=== PATIENT | female | born 1945 | race American Indian/Alaskan Native ===

== ENCOUNTER 2017-10-24 06:04 | Emergency (ER) | payer MEDICARE, BC ==
[2017-10-24 06:05] VITALS: BMI 30.7
--- NOTE | 2017-10-24 06:33 | ED PDOC ---
Arrival/HPI - General Chief Complaint: Headache Time Seen by Provider: 10/24/17 06:21 Historian: Patient - History of Present Illness Narrative History of Present Illness (Text): you were treated in the ED today for hx of diabetes, hypertension, had a headache yesterday which is essentially resolved but now feeling mildly fatigued with sinus congestion, but otherwise without any nausea/vomiting/ headache/dizziness/difficulty breathing/chest pain/abdomen pain/numbness/ tingling/loss of limb function/pain with urination. 10/24/17 06:30 Time/Duration: 24 hours Symptom Onset: Gradual Symptom Course: Intermittent Quality: Aching Severity Level: 1 Activities at Onset: Rest Context: Sitting Past Medical History - Provider Review Nursing Documentation Reviewed: Yes - Travel History Have you recently traveled outside [place] w/in the past 3 mons?: No - Infectious Disease Hx of Infectious Diseases: None - Cardiac Hx Hypertension: Yes - Pulmonary Hx Respiratory Disorders: No - Neurological Hx Neurological Disorder: No - HEENT Hx HEENT Disorder: Yes (eyeglasses) Hx Glaucoma: Yes - Renal Hx Renal Disorder: No - Endocrine/Metabolic Hx Diabetes Mellitus Type 2: Yes - Hematological/Oncological Hx Blood Disorders: No - Integumentary Hx Psoriasis: Yes - Musculoskeletal/Rheumatological Hx Musculoskeletal Disorders: Yes (r knee pain on and off few yrs) Hx Falls: No - Gastrointestinal Hx Gastrointestinal Disorders: Yes ("may have " mild diverticulosis) - Genitourinary/Gynecological Hx Genitourinary Disorders: No - Psychiatric Hx Psychophysiologic Disorder: No Hx Substance Use: No - Surgical History Hx Eye Surgery: Yes (R Corneal Transplant) - Anesthesia Hx Anesthesia: Yes Hx Anesthesia Reactions: No Hx Malignant Hyperthermia: No Family/Social History - Physician Review Nursing Documentation Reviewed: Yes Family/Social History: No Known Family HX Smoking Status: Never Smoked Hx Alcohol Use: No Hx Substance Use: No Allergies/Home Meds Allergies/Adverse Reactions: Allergies sulfamethoxazole [From Bactrim] Allergy (Verified 09/26/16 07:56) RASH trimethoprim [From Bactrim] Allergy (Verified 09/26/16 07:56) RASH Home Medications: Home Meds Medication Instructions Recorded Confirmed Amlodipine Besylate [Norvasc] 10 mg PO DAILY 03/23/16 10/24/17 Aspirin [Ecotrin] 81 mg PO DAILY 03/23/16 10/24/17 Atorvastatin [Lipitor] 10 mg PO DAILY 03/23/16 10/24/17 Dorzolamide HCl/Timolol Maleat 10 ml OP BID 03/23/16 10/24/17 [Dorzolamide Hydrochloride/Timolol Maleate 22] metFORMIN [glucOPHAGE] 500 mg PO BID 03/23/16 10/24/17 Olmesartan Medoxomil [Benicar] 40 mg PO DAILY 09/26/16 10/24/17 Brimonidine 0.15% [Alphagan P 5 Ml] 1 drop OP TID 10/24/17 10/24/17 Fluocinonide [Vanos] 1 applic BID 10/24/17 10/24/17 Fluorometholone 5 ml OP DAILY 10/24/17 10/24/17 Review of Systems - Review of Systems Constitutional: Fatigue Eyes: Normal ENT: Rhinorrhea Respiratory: Normal Cardiovascular: Normal Gastrointestinal: Normal Genitourinary Female: Normal Musculoskeletal: Normal Skin: Normal Neurological: Normal Endocrine: Normal Hemo/Lymphatic: Normal Psychiatric: Normal Physical Exam Vital Signs Reviewed: Yes Vital Signs Temp Pulse Resp BP Pulse Ox 10/24/17 06:20 98.5 F 98 H 18 138/93 H 99 Temperature: Afebrile Blood Pressure: Hypertensive Pulse: Regular Respiratory Rate: Normal Appearance: Positive for: Well-Appearing, Non-Toxic, Comfortable Pain Distress: None Mental Status: Positive for: Alert and Oriented X 3 - Systems Exam Head: Present: Atraumatic, Normocephalic Pupils: Present: PERRL Extroacular Muscles: Present: EOMI Conjunctiva: Present: Normal Ears: Present: Normal Mouth: Present: Moist Mucous Membranes Pharnyx: Present: Normal Nose (External): Present: Atraumatic Nose (Internal): Present: Boggy Neck: Present: Normal Range of Motion Respiratory/Chest: Present: Clear to Auscultation, Good Air Exchange Cardiovascular: Present: Regular Rate and Rhythm Abdomen: No: Tenderness, Distention, Normal Bowel Sounds, Peritoneal Signs, Rebound, Guarding, McBurney's Point Tender, Rovsing's Sign Present, Hernias, Feeding Tubes, Ostomy Tubes, Mass/Organomegaly, Scars, Other Back: Present: Normal Inspection Upper Extremity: Present: Normal Inspection Lower Extremity: Present: Normal Inspection Neurological: Present: GCS=15, CN II-XII Intact, Speech Normal, Motor Func Grossly Intact Skin: Present: Warm, Normal Color Psychiatric: Present: Alert, Oriented x 3, Normal Insight, Normal Concentration Medical Decision Making ED Course and Treatment: you were treated in the ED today for hx of diabetes, hypertension, had a headache yesterday which is essentially resolved but now feeling mildly fatigued with sinus congestion, but otherwise without any nausea/vomiting/ headache/dizziness/difficulty breathing/chest pain/abdomen pain/numbness/ tingling/loss of limb function/pain with urination. You were otherwise breathing easily, pink moist lips, smiling and talking easily, good strength/ sensation, alert/oriented, walking easily, clear lungs, no abdomen tenderness, no fever temp 98.5, stable heart rate 98, stable breathing rate 18, excellent oxygen level 99% room air, elevated blood pressure 138/93 which we recommend repeat in 2-3 days primary care office to determine further treatment. signed out to Dr. KOVACS to fu labs, CT head, ECG, disposition. - Lab Interpretations Lab Results: 10/24/17 06:34 Lab Results 10/24/17 06:34: Sodium 144, Potassium 4.1, Chloride 107, Carbon Dioxide 25, Anion Gap 15, BUN 15, Creatinine 0.7, Est GFR ( Amer) > 60, Est GFR (Non- Af Amer) > 60, Random Glucose 144 H, Calcium 10.3, Magnesium 1.8, Total Bilirubin 0.3, AST 26, ALT 29, Alkaline Phosphatase 77, Lactate Dehydrogenase 377, Total Creatine Kinase 160, Troponin I Pending, Total Protein 7.7, Albumin 4.4, Globulin 3.4, Albumin/Globulin Ratio 1.3 - RAD Interpretation Radiology Orders: 10/24/17 06:29 HEAD W/O CONTRAST [CT] Stat - Medication Orders Current Medication Orders: Discontinued Medications Acetaminophen (Tylenol 325mg Tab) 650 mg PO STAT STA Stop: 10/24/17 06:29 NIHSS Stroke Scale 3 - Date/Time Evaluation Performed Date Performed: 10/24/17 When Was NIHSS Performed: Baseline - How Severe is the Stroke Level of Consciousness: 0=Alert LOC to Questions: 0=Both comments correct LOC to commands: 0=Obeys both correctly Best Gaze: 0=Normal Visual: 0=No visual loss Facial: 0=Normal Motor Arm - Left: 0=No drift Motor Arm - Right: 0=No drift Motor Leg - Right: 0=No drift Limb Ataxia: 0=Absent Sensory: 0=Normal Best Language: 0=No aphasia Dysarthia: 0=Normal articulation Extinction & Inattention (Neglect): 0=Normal, no object Disposition/Present on Arrival - Present on Arrival History of DVT/PE: No History of Uncontrolled Diabetes: No Urinary Catheter: No History of Decub. Ulcer: No History Surgical Site Infection Following: None - Disposition Referrals: Kendrick De La Cruz DO [Primary Care Provider] - Follow up with primary Forms: [facility] [facility] ([place])
[2017-10-24 06:53] LABS: BASO # 0.02 K/mm3 (0.0-2.0); BASO % 0.5 % (0.0-3.0); EOS # 0.1 (0.0-0.7); EOS % 3.3 % (1.5-5.0); GRAN # 2.43 (1.4-6.5); GRAN % 56.7 % (50.0-68.0); HEMOGLOBIN 13.1 g/dL (12.0-16.0); LYMPH # 1.3 (1.2-3.4); LYMPH % 31.1 % (22.0-35.0); MEAN CELL VOLUME 80.9 fl (80.0-105.0); MEAN CORPUSCULAR HEMOGLOBIN 26.1 pg (25.0-35.0); MEAN CORPUSCULAR HGB CONC 32.3 g/dl (31.0-37.0); MEAN PLATELET VOLUME 9.2 fl (7.0-11.0); MONO # 0.4 (0.1-0.6); MONO % 8.4 % (1.0-6.0); RBC 5.02 10^6/uL (3.5-6.1); RED CELL DISTRIBUTION WIDTH 14.8 % (11.5-14.5); WHITE BLOOD COUNT 4.3 10^3/ul (4.5-11.0)
[2017-10-24 06:57] LABS: ALB/GLOB RATIO 1.3 (1.1-1.8); ALBUMIN 4.4 g/dL (3.0-4.8); ALT/SGPT 29 U/L (7-56); AST/SGOT 26 U/L (14-36); BLOOD UREA NITROGEN 15 mg/dL (7-21); CALCIUM 10.3 mg/dL (8.4-10.5); GFR AFRICAN-AMERICAN > 60; GFR NON-AFRICAN AMERICAN > 60
[2017-10-24 07:07] LABS: TROPONIN I < 0.01 ng/mL
[2017-10-24 07:13] LABS: PROTHROMBIN TIME 11.2 SECONDS (9.4-12.5)
[2017-10-24 07:14] LABS: INR 0.97 (0.93-1.08)
--- NOTE | 2017-10-24 07:24 | CT ---
EXAM: CT Head Without Intravenous Contrast CLINICAL HISTORY: 72 years old, female; Pain; Headache; Additional info: 72yof, headache TECHNIQUE: Axial computed tomography images of the head/brain without intravenous contrast. All CT scans at this facility use one or more dose reduction techniques, viz.: automated exposure control; ma/kV adjustment per patient size (including targeted exams where dose is matched to indication; i.e. head); or iterative reconstruction technique. Coronal and sagittal reformatted images were created and reviewed. COMPARISON: CT - HEAD W/O CONTRAST 2016-03-23 07:02 FINDINGS: Brain: There is mild ill-defined patchy hypodensity within the bilateral cerebral periventricular white matter, consistent with chronic microvascular ischemic changes. There is mild diffuse cerebral atrophy present, consistent with this patient's age. The cortical kwok / white matter interfaces are preserved throughout the brain. Examination of the posterior fossa demonstrates no significant abnormality. No hemorrhage. Ventricles: The ventricular system demonstrates mild diffuse compensatory enlargement. Bones/joints: Unremarkable. No acute fracture. Soft tissues: Unremarkable. Vasculature: There is no hyperdense MCA sign. Sinuses: Unremarkable as visualized. No acute sinusitis. Mastoid air cells: Unremarkable as visualized. No mastoid effusion. IMPRESSION: No acute infarction, masses or hemorrhage is seen. No acute intracranial abnormality is identified. Diffuse age-related cerebral atrophy and mild chronic microvascular white matter ischemic changes, without evidence of an acute intracranial abnormality.
[2017-10-24 07:29] LABS: PARTIAL THROMBOPLASTIN TIME 26.6 Seconds (25.1-36.5)
--- NOTE | 2017-10-24 07:41 | ED PDOC ---
Physical Exam Vital Signs Temp Pulse Resp BP Pulse Ox 10/24/17 08:06 98.1 F 90 17 153/86 H 98 10/24/17 06:20 98.5 F 98 H 18 138/93 H 99 Medical Decision Making ED Course and Treatment: 10/24/17 07:00 Case signed out to me by Dr. Hernandez. Patient is a 72 year old female who presents to the emergency department complaining of fatigue with sinus congestion since one day ago. Currently pending CT head. 10/24/17 07:[address]: Creator : DEREJE ZUÑIGA COMPARISON: 2016-03-23 07:02 FINDINGS: Brain: There is mild ill-defined patchy hypodensity within the bilateral cerebral periventricular white matter, consistent with chronic microvascular ischemic changes. There is mild diffuse cerebral atrophy present, consistent with this patient's age. The cortical kwok / white matter interfaces are preserved throughout the brain. Examination of the posterior fossa demonstrates no significant abnormality. No hemorrhage. Ventricles: The ventricular system demonstrates mild diffuse compensatory enlargement. Bones/joints: Unremarkable. No acute fracture. Soft tissues: Unremarkable. Vasculature: There is no hyperdense MCA sign. Sinuses: Unremarkable as visualized. No acute sinusitis. Mastoid air cells: Unremarkable as visualized. No mastoid effusion. IMPRESSION: No acute infarction, masses or hemorrhage is seen. No acute intracranial abnormality is identified. Diffuse age-related cerebral atrophy and mild chronic microvascular white matter ischemic changes, without evidence of an acute intracranial abnormality. 10/24/17 08:[address] unremarkable. Patient describes feeling as a "wave moving " in the head. She reports some congestion but not much. No sinus tenderness on exam. No focal deficit on exam. Will discharge, neurology and PMD follow up, return to ED for worsening pain, fever, stiff neck, vomiting, or any other problem. - Lab Interpretations Lab Results: 10/24/17 06:34 10/24/17 06:34 Lab Results 10/24/17 08:00: Urine Color Light yellow, Urine Appearance Clear, Urine pH 6.0, Ur Specific Aurora 1.010, Urine Protein Negative, Urine Glucose (UA) Negative, Urine Ketones Negative, Urine Blood Negative, Urine Nitrate Negative, Urine Bilirubin Negative, Urine Urobilinogen 0.2, Ur Leukocyte Esterase Negative 10/24/17 06:34: Influenza Typ A,B (EIA) Negative for flu a/b 10/24/17 06:34: Sodium 144, Potassium 4.1, Chloride 107, Carbon Dioxide 25, Anion Gap 15, BUN 15, Creatinine 0.7, Est GFR ( Amer) > 60, Est GFR (Non- Af Amer) > 60, Random Glucose 144 H, Calcium 10.3, Magnesium 1.8, Total Bilirubin 0.3, AST 26, ALT 29, Alkaline Phosphatase 77, Lactate Dehydrogenase 377, Total Creatine Kinase 160, Troponin I < 0.01, Total Protein 7.7, Albumin 4.4, Globulin 3.4, Albumin/Globulin Ratio 1.3 10/24/17 06:34: PT 11.2, INR 0.97, APTT 26.6 10/24/17 06:34: WBC 4.3 L, RBC 5.02, Hgb 13.1, Hct 40.6, MCV 80.9, MCH 26.1, MCHC 32.3, RDW 14.8 H, Plt Count 282, MPV 9.2, Gran % 56.7, Lymph % (Auto) 31.1 , Kidder % (Auto) 8.4 H, Eos % (Auto) 3.3, Baso % (Auto) 0.5, Gran # 2.43, Lymph # (Auto) 1.3, Kidder # (Auto) 0.4, Eos # (Auto) 0.1, Baso # (Auto) 0.02 - RAD Interpretation Radiology Orders: 10/24/17 06:29 HEAD W/O CONTRAST [CT] Stat - Medication Orders Current Medication Orders: Discontinued Medications Acetaminophen (Tylenol 325mg Tab) 650 mg PO STAT STA Stop: 10/24/17 06:29 Last Admin: 10/24/17 07:22 Dose: 650 mg - Scribe Statement The provider has reviewed the documentation as recorded by the Marco A Wills Provider Scribe Attestation: All medical record entries made by the Coraiblinda were at my direction and personally dictated by me. I have reviewed the chart and agree that the record accurately reflects my personal performance of the history, physical exam, medical decision making, and the department course for this patient. I have also personally directed, reviewed, and agree with the discharge instructions and disposition. Disposition/Present on Arrival - Present on Arrival Any Indicators Present on Arrival: No History of DVT/PE: No History of Uncontrolled Diabetes: No Urinary Catheter: No History of Decub. Ulcer: No History Surgical Site Infection Following: None - Disposition Have Diagnosis and Disposition been Completed?: Yes Diagnosis: Headache Disposition: HOME/ ROUTINE Disposition Time: 08:44 Patient Plan: Discharge Condition: STABLE Discharge Instructions (ExitCare): Headache, Adult Referrals: Kendrick De La Cruz DO [Primary Care Provider] - Follow up with primary Rebeca Mcgarry MD [Staff Provider] - Follow up with primary Forms: [employer] ([place]otho)
[2017-10-24 08:06] VITALS: BP 153/86; PULSE 90; RESP 17; TEMP 98.1; O2SAT 98
[2017-10-24 08:23] LABS: URINE BILIRUBIN NEGATIVE (NEGATIVE); URINE BLOOD NEGATIVE (NEGATIVE); URINE GLUCOSE (UA) NEGATIVE (NEGATIVE); URINE LEUKOCYTE ESTERASE NEGATIVE Leu/uL (NEGATIVE); URINE PROTEIN NEGATIVE mg/dL (<30 mg/dL); URINE UROBILINOGEN 0.2 E.U./dL (<1 E.U./dL)
[2017-10-24 08:29] LABS: URINE APPEARANCE CLEAR (CLEAR); URINE COLOR LIGHT YELLOW (YELLOW)
--- NOTE | 2017-10-24 19:48 | CARD ---
APPROVED REPORT EKG Measurement Heart [id number] <Conclusion> Normal sinus rhythm Normal ECG
== END 2017-10-24 08:55 | disposition home or self-care (01) ==
LOC: ED 06:04
DX: R51 Headache (principal); E11.9 Type 2 diabetes mellitus without complications; I10 Essential (primary) hypertension; Z79.84 Long term (current) use of oral hypoglycemic drugs

== ENCOUNTER 2018-03-15 15:02 | Emergency (ER) | payer MEDICARE, BC ==
[2018-03-15 15:16] VITALS: BMI 31.6
[2018-03-15 15:21] VITALS: BP 148/81; PULSE 86; TEMP 98.4; O2SAT 96
--- NOTE | 2018-03-15 15:42 | ED PDOC ---
Arrival/HPI - General Chief Complaint: Abnormal Skin Integrity Time Seen by Provider: 03/15/18 15:10 Historian: Patient - History of Present Illness Narrative History of Present Illness (Text): 03/15/18 15:56 A 73 year old female, whose past medical history includes diabetes, presents to the emergency room for further evaluation of a rash on her R leg. The patient states that she noticed the rash last night. She notes the rash began after sitting on a acevedo lounge chair that is near a window and that her step- daughter also developed a similar rash. The patient reports that the rash is somewhat itchy and has been applying hydrocortisol to it. She was at the hospital today getting a mammography and was not able to get an appointment with her PMD, so she decided to come into the emergency room. She states that she had shingles 10 years ago, but her current symptoms are very different. The patient reports checking pillows and mattresses for other insects. The patient denies fevers, chills, cough, throat swelling, chest pain, shortness of breath , dyspnea on exertion, abdominal pain, nausea, vomiting, diarrhea, urinary/ bowel changes or any other complaint. 03/15/18 16:30 Time/Duration: Other (Last Night) Symptom Onset: Sudden Symptom Course: Unchanged Activities at Onset: Rest, Light Context: Home Past Medical History - Provider Review Nursing Documentation Reviewed: Yes - Infectious Disease Hx of Infectious Diseases: None - Reproductive Menopause: Yes - Cardiac Hx Hypertension: Yes - Pulmonary Hx Respiratory Disorders: No - Neurological Hx Neurological Disorder: No - HEENT Hx HEENT Disorder: Yes (eyeglasses) Hx Glaucoma: Yes - Renal Hx Renal Disorder: No - Endocrine/Metabolic Hx Diabetes Mellitus Type 2: Yes - Hematological/Oncological Hx Blood Disorders: No - Integumentary Hx Psoriasis: Yes - Musculoskeletal/Rheumatological Hx Musculoskeletal Disorders: Yes (r knee pain on and off few yrs) Hx Falls: No - Gastrointestinal Hx Gastrointestinal Disorders: Yes ("may have " mild diverticulosis) - Genitourinary/Gynecological Hx Genitourinary Disorders: No - Psychiatric Hx Psychophysiologic Disorder: No Hx Substance Use: No - Surgical History Hx Eye Surgery: Yes (R Corneal Transplant) - Anesthesia Hx Anesthesia: Yes Hx Anesthesia Reactions: No Hx Malignant Hyperthermia: No Family/Social History - Physician Review Nursing Documentation Reviewed: Yes Family/Social History: No Known Family HX Smoking Status: Never Smoked Hx Alcohol Use: No Hx Substance Use: No Allergies/Home Meds Allergies/Adverse Reactions: Allergies sulfamethoxazole [From Bactrim] Allergy (Verified 09/26/16 07:56) RASH trimethoprim [From Bactrim] Allergy (Verified 09/26/16 07:56) RASH Home Medications: Home Meds Medication Instructions Recorded Confirmed Amlodipine Besylate [Norvasc] 10 mg PO DAILY 03/23/16 03/15/18 Aspirin [Ecotrin] 81 mg PO DAILY 03/23/16 03/15/18 Atorvastatin [Lipitor] 10 mg PO DAILY 03/23/16 03/15/18 Dorzolamide HCl/Timolol Maleat 10 ml OP BID 03/23/16 03/15/18 [Dorzolamide Hydrochloride/Timolol Maleate 22] metFORMIN [glucOPHAGE] 500 mg PO BID 03/23/16 03/15/18 Olmesartan Medoxomil [Benicar] 40 mg PO DAILY 09/26/16 03/15/18 Brimonidine 0.15% [Alphagan P 5 Ml] 1 drop OP TID 10/24/17 03/15/18 Fluocinonide [Vanos] 1 applic BID 10/24/17 03/15/18 Fluorometholone 5 ml OP DAILY 10/24/17 03/15/18 Review of Systems - Physician Review All systems were reviewed & negative as marked: Yes - Review of Systems Constitutional: absent: Fevers, Night Sweats Respiratory: absent: SOB, Cough Cardiovascular: absent: Chest Pain, PALENCIA Gastrointestinal: absent: Abdominal Pain, Stool Changes, Diarrhea, Nausea, Vomiting Genitourinary Female: absent: Urine Output Changes Skin: Rash Neurological: absent: Headache, Dizziness Physical Exam Vital Signs Reviewed: Yes Vital Signs Temp Pulse BP Pulse Ox 03/15/18 15:02 98.4 F 86 148/81 96 Temperature: Afebrile Blood Pressure: Normal Pulse: Regular Appearance: Positive for: Well-Appearing, Non-Toxic, Comfortable Pain Distress: None Mental Status: Positive for: Alert and Oriented X 3 - Systems Exam Head: Present: Atraumatic, Normocephalic Respiratory/Chest: Present: Clear to Auscultation, Good Air Exchange. No: Respiratory Distress, Accessory Muscle Use Cardiovascular: Present: Regular Rate and Rhythm, Normal S1, S2. No: Murmurs Abdomen: No: Tenderness, Distention, Peritoneal Signs Upper Extremity: Present: Normal Inspection. No: Cyanosis, Edema Lower Extremity: Present: Normal Inspection. No: Edema Skin: Present: Other (3 lesions on the right leg and 2 on the lower R leg consistent with bug bites. ) Psychiatric: Present: Alert, Oriented x 3, Normal Insight, Normal Concentration Medical Decision Making ED Course and Treatment: Impression: A 73 year old female presents to the emergency room for further evaluating of rash that developed last night. Plan: -- Benadryl -- Reassess and disposition Progress Notes: 03/15/18 15:41 Offered steroids but refusing due to diabetes. Instructed to check home belongings for bugs - Medication Orders Current Medication Orders: Discontinued Medications Diphenhydramine HCl (Benadryl) 50 mg PO STAT STA Stop: 03/15/18 15:40 Last Admin: 03/15/18 16:00 Dose: 50 mg - Scribe Statement The provider has reviewed the documentation as recorded by the Marco A Woods Provider Scribe Attestation: All medical record entries made by the Scribe were at my direction and personally dictated by me. I have reviewed the chart and agree that the record accurately reflects my personal performance of the history, physical exam, medical decision making, and the department course for this patient. I have also personally directed, reviewed, and agree with the discharge instructions and disposition. Disposition/Present on Arrival - Present on Arrival Any Indicators Present on Arrival: No History of DVT/PE: No History of Uncontrolled Diabetes: No Urinary Catheter: No History of Decub. Ulcer: No History Surgical Site Infection Following: None - Disposition Have Diagnosis and Disposition been Completed?: Yes Diagnosis: Rash, Insect bites Disposition: HOME/ ROUTINE Disposition Time: 15:40 Patient Plan: Discharge Patient Problems: Current Active Problems Problem Status Onset Insect bites Acute Rash Acute Condition: GOOD Additional Instructions: Benadryl for itching. Follow-up with PMD within 2 days. Return to ED if condition worsens. Check lounge chair and other soft items such as pillows and mattress for insects. No driving or operating machinery while taking benadryl Prescriptions: DiphenhydrAMINE [Benadryl] 25 mg PO Q6 PRN #30 cap PRN Reason: Itching / Pruritus Forms: [facility] (Wol[place])
[2018-03-15 17:46] VITALS: RESP 18
== END 2018-03-15 16:00 | disposition home or self-care (01) ==
LOC: ED 15:02
DX: R21 Rash and other nonspecific skin eruption (principal); S80.861A Insect bite (nonvenomous), right lower leg, initial encounter; W57.XXXA Bitten or stung by nonvenomous insect and other nonvenomous arthropods, initial encounter; Y92.89 Other specified places as the place of occurrence of the external cause

== ENCOUNTER 2018-07-07 07:35 | Emergency (ER) | payer MEDICARE, BC ==
[2018-07-07 07:50] VITALS: PULSE 84; RESP 16; TEMP 98.7; BMI 30.5
--- NOTE | 2018-07-07 08:07 | ED PDOC ---
Arrival/HPI - General Chief Complaint: Flu-like Symptoms Time Seen by Provider: 07/07/18 07:39 Historian: Patient - History of Present Illness Narrative History of Present Illness (Text): 07/07/18 08:06 73 year old female, whose past medical history includes diabetes, presents complaining of on and off sore throat, sinus pressure, runny nose, and earache for the past few weeks. Patient states she was on Augmentin and Z-pack for the past 2 weeks which relieved her symptoms, but the symptoms returned 3 days ago. Patient denies any fever, chills, chest pain, shortness of breath, nausea, vomiting, diarrhea, urinary symptoms, back pain, neck pain, headache, dizziness, or any other complaints. PMD: Dr. De La Cruz Time/Duration: Other (few weeks) Symptom Onset: Gradual Symptom Course: Intermittent Activities at Onset: Light Context: Home Past Medical History - Provider Review Nursing Documentation Reviewed: Yes - Infectious Disease Hx of Infectious Diseases: None - Cardiac Hx Cardiac Disorders: Yes Hx Hypertension: Yes - Pulmonary Hx Respiratory Disorders: No - Neurological Hx Neurological Disorder: No - HEENT Hx HEENT Disorder: Yes (eyeglasses) Hx Cataracts: Yes Hx Glaucoma: Yes - Renal Hx Renal Disorder: No - Endocrine/Metabolic Hx Endocrine Disorders: Yes Hx Diabetes Mellitus Type 2: Yes - Hematological/Oncological Hx Blood Disorders: No - Integumentary Hx Dermatological Disorder: Yes Hx Psoriasis: Yes - Musculoskeletal/Rheumatological Hx Musculoskeletal Disorders: Yes (r knee pain on and off few yrs) Hx Falls: No - Gastrointestinal Hx Gastrointestinal Disorders: Yes ("may have " mild diverticulosis) - Genitourinary/Gynecological Hx Genitourinary Disorders: No - Psychiatric Hx Psychophysiologic Disorder: No Hx Substance Use: No - Surgical History Hx Cataract Extraction: Yes (L eye) Hx Eye Surgery: Yes (R Corneal Transplant) - Anesthesia Hx Anesthesia: Yes Hx Anesthesia Reactions: No Hx Malignant Hyperthermia: No Family/Social History - Physician Review Nursing Documentation Reviewed: Yes Family/Social History: No Known Family HX Smoking Status: Never Smoked Hx Alcohol Use: No Hx Substance Use: No Allergies/Home Meds Allergies/Adverse Reactions: Allergies sulfamethoxazole [From Bactrim] Allergy (Verified 09/26/16 07:56) RASH trimethoprim [From Bactrim] Allergy (Verified 09/26/16 07:56) RASH Home Medications: Home Meds Medication Instructions Recorded Confirmed Amlodipine Besylate [Norvasc] 10 mg PO DAILY 03/23/16 07/07/18 Aspirin [Ecotrin] 81 mg PO DAILY 03/23/16 07/07/18 Atorvastatin [Lipitor] 10 mg PO DAILY 03/23/16 07/07/18 Dorzolamide HCl/Timolol Maleat 10 ml OP BID 03/23/16 07/07/18 [Dorzolamide Hydrochloride/Timolol Maleate 22] metFORMIN [glucOPHAGE] 500 mg PO BID 03/23/16 07/07/18 Olmesartan Medoxomil [Benicar] 40 mg PO DAILY 09/26/16 07/07/18 Brimonidine 0.15% [Alphagan P 5 Ml] 1 drop OP TID 10/24/17 07/07/18 Fluorometholone 5 ml OP DAILY 10/24/17 07/07/18 Review of Systems - Physician Review All systems were reviewed & negative as marked: Yes - Review of Systems Constitutional: absent: Fevers, Other (Chills) ENT: Sore Throat, Rhinorrhea, Other ((+) sinus pressure (+) earache ) Cardiovascular: absent: Chest Pain Gastrointestinal: absent: Diarrhea, Nausea, Vomiting Genitourinary Female: absent: Dysuria, Frequency, Hematuria Musculoskeletal: absent: Back Pain, Neck Pain Neurological: absent: Headache, Dizziness Physical Exam Vital Signs Reviewed: Yes Vital Signs Temp Pulse Resp BP Pulse Ox 07/07/18 07:45 98.7 F 84 16 151/76 H 98 Temperature: Afebrile Blood Pressure: Hypertensive Pulse: Regular Respiratory Rate: Normal Appearance: Positive for: Well-Appearing, Non-Toxic, Comfortable Pain Distress: None Mental Status: Positive for: Alert and Oriented X 3 - Systems Exam Head: Present: Atraumatic, Normocephalic, Tenderness (to the left maxillary area) Conjunctiva: Present: Normal Mouth: Present: Moist Mucous Membranes Neck: Present: Normal Range of Motion Respiratory/Chest: Present: Clear to Auscultation, Good Air Exchange. No: Respiratory Distress, Accessory Muscle Use Cardiovascular: Present: Regular Rate and Rhythm, Normal S1, S2. No: Murmurs Neurological: Present: GCS=15, CN II-XII Intact, Speech Normal Skin: Present: Warm, Dry, Normal Color. No: Rashes Psychiatric: Present: Alert, Oriented x 3, Normal Insight, Normal Concentration Medical Decision Making ED Course and Treatment: 07/07/18 08:06 Impression: 73 year old female presents complaining of on and off sore throat, sinus pressure, runny nose, and earache for the past few weeks. Plan: -- Prescription for Singulair and Clindamycin -- Disposition Progress Notes: 07/07/18 08:18 Patient is in no acute distress. I have discussed the plan with the patient, who expresses understanding. Patient in agreement with plan to be discharged home with Prescription for Singulair and Clindamycin. Patient is stable for discharg e. Patient was instructed to follow up with PMD and ENT, or return if symptoms worsen or new concerning symptoms arise. - Scribe Statement The provider has reviewed the documentation as recorded by the Marco A Collier Provider Scribe Attestation: All medical record entries made by the Coraiblinda were at my direction and personally dictated by me. I have reviewed the chart and agree that the record accurately reflects my personal performance of the history, physical exam, medical decision making, and the department course for this patient. I have also personally directed, reviewed, and agree with the discharge instructions and disposition. Disposition/Present on Arrival - Present on Arrival Any Indicators Present on Arrival: No History of DVT/PE: No History of Uncontrolled Diabetes: No Urinary Catheter: No History of Decub. Ulcer: No History Surgical Site Infection Following: None - Disposition Have Diagnosis and Disposition been Completed?: Yes Diagnosis: Sinusitis Disposition: HOME/ ROUTINE Disposition Time: 07:50 Condition: GOOD Discharge Instructions (ExitCare): Sinusitis, Adult (DC) Additional Instructions: AMISH PAVON, thank you for letting us take care of you today. The emergency medical care you received today was directed at your acute symptoms. If you were prescribed any medication, please fill it and take as directed. It may take several days for your symptoms to resolve. Return to the Emergency Department if your symptoms worsen, do not improve, or if you have any other problems. Please contact your doctor or call one of the physicians/clinics you have been referred to that are listed on the Patient Visit Information form that is included in your discharge packet. Bring any paperwork you were given at dis charge with you along with any medications you are taking to your follow up visit. Our treatment cannot replace ongoing medical care by a primary care provider outside of the emergency department. Thank you for allowing the [facility] team to be part of your care today. Follow up with Dr. De La Cruz in 2-3 days for possible referral to an ENT doctor. Prescriptions: Clindamycin [Cleocin] 300 mg PO Q6 #28 cap Montelukast [Singulair] 10 mg PO DAILY #14 tab Referrals: Kendrick De La Cruz, DO [Family Provider] - Follow up with primary Forms: [employer] ([employer])
[2018-07-07 08:25] VITALS: BP 150/73; O2SAT 99
== END 2018-07-07 08:23 | disposition home or self-care (01) ==
LOC: ED 07:35
DX: J32.9 Chronic sinusitis, unspecified (principal); I10 Essential (primary) hypertension; E11.9 Type 2 diabetes mellitus without complications

== ENCOUNTER 2018-10-26 08:43 | Emergency (ER) | payer MEDICARE, BC ==
[2018-10-26 08:59] VITALS: BMI 30.3
--- NOTE | 2018-10-26 09:42 | ED PDOC ---
Arrival/HPI - General Chief Complaint: Dizziness/Lightheaded Time Seen by Provider: 10/26/18 09:15 Historian: Patient - History of Present Illness Narrative History of Present Illness (Text): 10/26/18 09:37 73 y/o female with PMH of diabetes, HTN, hyperlipidemia, glaucoma, presents to the ED c/o intermittent lightheadedness and an odd sensation in her head x 3 weeks since the passing of her . Describes the sensation as a "twirling" in the top and back of her head. She developed a frontal headache last night that was relieved with tylenol, prompting visit to ED. No headache now. Pt states she would just like to "get checked out". Denies SI, HI, drug use, recent changes in medications, chest pain, SOB, palpitations, abdominal pain, nausea, vomiting, diarrhea, melena, hematochezia, back pain, urinary symptoms, vision changes, vertigo, tinnitus, weakness, numbness, paresthesias, difficulty speaking, difficulty ambulating, or any other associated symptoms. Past Medical History - Provider Review Nursing Documentation Reviewed: Yes - Infectious Disease Hx of Infectious Diseases: None - Reproductive Menopause: Yes - Cardiac Hx Cardiac Disorders: Yes Hx Hypertension: Yes - Pulmonary Hx Respiratory Disorders: No - Neurological Hx Neurological Disorder: No - HEENT Hx HEENT Disorder: Yes (eyeglasses) Hx Cataracts: Yes Hx Glaucoma: Yes - Renal Hx Renal Disorder: No - Endocrine/Metabolic Hx Endocrine Disorders: Yes Hx Diabetes Mellitus Type 2: Yes - Hematological/Oncological Hx Blood Disorders: No - Integumentary Hx Dermatological Disorder: Yes Hx Psoriasis: Yes - Musculoskeletal/Rheumatological Hx Musculoskeletal Disorders: Yes (r knee pain on and off few yrs) Hx Falls: No - Gastrointestinal Hx Gastrointestinal Disorders: Yes ("may have " mild diverticulosis) - Genitourinary/Gynecological Hx Genitourinary Disorders: No - Psychiatric Hx Psychophysiologic Disorder: No Hx Substance Use: No - Surgical History Hx Cataract Extraction: Yes (L eye) Hx Eye Surgery: Yes (R Corneal Transplant) - Anesthesia Hx Anesthesia: Yes Hx Anesthesia Reactions: No Hx Malignant Hyperthermia: No Family/Social History - Physician Review Nursing Documentation Reviewed: Yes Family/Social History: No Known Family HX Smoking Status: Never Smoked Hx Alcohol Use: No Hx Substance Use: No Allergies/Home Meds Allergies/Adverse Reactions: Allergies sulfamethoxazole [From Bactrim] Allergy (Verified 09/26/16 07:56) RASH trimethoprim [From Bactrim] Allergy (Verified 09/26/16 07:56) RASH Home Medications: Home Meds Medication Instructions Recorded Confirmed Amlodipine Besylate [Norvasc] 10 mg PO DAILY 03/23/16 10/26/18 Aspirin [Ecotrin] 81 mg PO DAILY 03/23/16 10/26/18 Atorvastatin [Lipitor] 10 mg PO DAILY 03/23/16 10/26/18 Dorzolamide HCl/Timolol Maleat 10 ml OP BID 03/23/16 10/26/18 [Dorzolamide Hydrochloride/Timolol Maleate 22] metFORMIN [glucOPHAGE] 500 mg PO BID 03/23/16 10/26/18 Olmesartan Medoxomil [Benicar] 40 mg PO DAILY 09/26/16 10/26/18 Brimonidine 0.15% [Alphagan P 5 Ml] 1 drop OP TID 10/24/17 10/26/18 Fluorometholone 5 ml OP DAILY 10/24/17 10/26/18 Review of Systems - Review of Systems Constitutional: Normal. absent: Fevers Eyes: Normal. absent: Vision Changes ENT: Normal. absent: Hearing Changes, Tinnitus, Sore Throat, Rhinorrhea, Sinus Congestion Respiratory: Normal. absent: SOB, Cough Cardiovascular: Normal. absent: Chest Pain, Palpitations, Syncope Gastrointestinal: Normal. absent: Abdominal Pain, Stool Changes, Nausea, Vomiting, Appetite Changes Genitourinary Female: Normal. absent: Dysuria, Frequency Musculoskeletal: Normal. absent: Back Pain, Neck Pain Skin: Normal. absent: Rash Neurological: Headache, Dizziness. absent: Focal Weakness, Gait Changes, Speech Changes, Facial Droop, Disequilibrium Endocrine: Normal Hemo/Lymphatic: Normal Psychiatric: Normal Physical Exam Vital Signs Reviewed: Yes Vital Signs Temp Pulse Resp BP Pulse Ox 10/26/18 09:11 98.7 F 74 18 131/72 97 Temperature: Afebrile Blood Pressure: Normal Pulse: Regular Respiratory Rate: Normal Appearance: Positive for: Well-Appearing, Non-Toxic, Comfortable Pain Distress: None Mental Status: Positive for: Alert and Oriented X 3 Finger Stick Blood Glucose: 140 - Systems Exam Head: Present: Atraumatic, Normocephalic Pupils: Present: PERRL Extroacular Muscles: Present: EOMI Conjunctiva: Present: Normal Ears: Present: Normal, NORMAL TM, Normal Canal Mouth: Present: Moist Mucous Membranes Pharnyx: Present: Normal. No: ERYTHEMA, EXUDATE Neck: Present: Normal Range of Motion. No: Meningeal Signs, Lymphadenopathy Respiratory/Chest: Present: Clear to Auscultation, Good Air Exchange. No: Respiratory Distress, Accessory Muscle Use Cardiovascular: Present: Regular Rate and Rhythm, Normal S1, S2 Abdomen: Present: Normal Bowel Sounds. No: Tenderness, Distention, Peritoneal Signs, Rebound, Guarding Back: Present: Normal Inspection. No: CVA Tenderness Upper Extremity: Present: Normal Inspection, Normal ROM, NORMAL PULSES, Neurovascularly Intact, Capillary Refill < 2s. No: Cyanosis, Edema, Temperature Abnormalties Lower Extremity: Present: Normal Inspection, NORMAL PULSES, Normal ROM, Neurovascularly Intact, Capillary Refill < 2 s. No: Edema, Temperature Abnormalties Neurological: Present: GCS=15, CN II-XII Intact, Speech Normal, Motor Func Grossly Intact, Normal Sensory Function, Gait Normal Skin: Present: Warm, Dry, Normal Color. No: Rashes Lymphatic: No: Cervical Adenopathy Psychiatric: Present: Alert, Oriented x 3, Normal Insight, Normal Concentration, Normal Affect, Normal Mood Medical Decision Making ED Course and Treatment: 10/26/18 09:43 Initial Plan: * EKG * CBC, CMP * Coags * UA, culture * Troponin * CXR * Head CT * Orthostatics Labwork reviewed, unremarkable CXR shows no active disease EKG shows no acute changes Head CT shows no abnormalities 10/26/18 12:05 Spoke with PMD, Dr. De La Cruz, who was updated with results of diagnostic testing. Recommends discharge home with outpatient followup. Patient provided with copies of diagnostic testing. Advised PMD and Neurology followup. Diagnostic testing results and plan of care discussed with patient. Strict instructions given regarding prescription use, importance of followup, and signs/symptoms to return to ER including or any other new/worsening symptoms. Pt verbalized understanding of discussion. Patient is A&Ox3, ambulating with steady gait, with vital signs stable for discharge. - RAD Interpretation Narrative RAD Interpretations (Text): 10/26/18 12:12 CXR: FINDINGS: LUNGS: No active pulmonary disease. PLEURA: No significant pleural effusion identified, no pneumothorax apparent. CARDIOVASCULAR: No aortic atherosclerotic calcification present. Normal cardiac size. No pulmonary vascular congestion. OSSEOUS STRUCTURES: No significant abnormalities. VISUALIZED UPPER ABDOMEN: Normal. OTHER FINDINGS: None. IMPRESSION: No active disease. Head CT: FINDINGS: HEMORRHAGE: No intracranial hemorrhage. BRAIN: No mass effect or edema. No atrophy or chronic microvascular ischemic changes. VENTRICLES: Unremarkable. No hydrocephalus. CALVARIUM: Unremarkable. PARANASAL SINUSES: Unremarkable as visualized. No significant inflammatory changes. MASTOID AIR CELLS: Unremarkable as visualized. No inflammatory changes. OTHER FINDINGS: None. IMPRESSION: Normal CT of the Head. Radiology Orders: 10/26/18 09:25 HEAD W/O CONTRAST [CT] Stat CHEST PORTABLE [RAD] Stat - EKG Interpretation EKG Interpretation (Text): 10/26/18 09:44 Rate 74; NSR; Normal intervals; No STEMI or other signs of acute ischemia Interpreted by ED Physician: Yes Type: 12 lead EKG Disposition/Present on Arrival - Present on Arrival Any Indicators Present on Arrival: No History of DVT/PE: No History of Uncontrolled Diabetes: No Urinary Catheter: No History of Decub. Ulcer: No History Surgical Site Infection Following: None - Disposition Have Diagnosis and Disposition been Completed?: Yes Diagnosis: Headache, Lightheadedness Disposition: HOME/ ROUTINE Disposition Time: 12:04 Patient Plan: Discharge Condition: STABLE Discharge Instructions (ExitCare): Headache, Adult Additional Instructions: Increase fluids Followup with Neurology within [address] De La Cruz within 2 days Return to ER with any new/worsening symptoms Referrals: Kendrick De La Cruz DO [Primary Care Provider] - Follow up with primary Rebeca Mcgarry MD [Staff Provider] - Follow up with primary Forms: [employer] ([employer]), WORK NOTE
[2018-10-26 10:11] LABS: BASO # 0.02 K/mm3 (0.0-2.0); BASO % 0.4 % (0.0-3.0); EOS # 0.1 (0.0-0.7); EOS % 1.7 % (1.5-5.0); HEMOGLOBIN 12.7 g/dL (12.0-16.0); LYMPH # 1.4 (1.2-3.4); LYMPH % 25.4 % (22.0-35.0); MEAN CELL VOLUME 81.3 fl (80.0-105.0); MEAN CORPUSCULAR HEMOGLOBIN 26.1 pg (25.0-35.0); MEAN CORPUSCULAR HGB CONC 32.1 g/dl (31.0-37.0); MONO # 0.4 (0.1-0.6); RBC 4.87 10^6/uL (3.5-6.1); RED CELL DISTRIBUTION WIDTH 15.4 % (11.5-14.5); WHITE BLOOD COUNT 5.3 10^3/uL (4.5-11.0)
[2018-10-26 10:15] LABS: URINE APPEARANCE CLEAR (CLEAR); URINE BILIRUBIN NEGATIVE (NEGATIVE); URINE BLOOD NEGATIVE (NEGATIVE); URINE COLOR YELLOW (YELLOW); URINE GLUCOSE (UA) NEGATIVE (NEGATIVE); URINE LEUKOCYTE ESTERASE NEGATIVE Leu/uL (NEGATIVE); URINE PROTEIN NEGATIVE mg/dL (<30 mg/dL); URINE UROBILINOGEN 0.2 E.U./dL (<1 E.U./dL)
[2018-10-26 10:22] LABS: ALB/GLOB RATIO 1.4 (1.1-1.8); ALBUMIN 4.3 g/dL (3.0-4.8); ALT/SGPT 15 U/L (7-56); AST/SGOT 20 U/L (14-36); BLOOD UREA NITROGEN 12 mg/dL (7-21); CALCIUM 10.1 mg/dL (8.4-10.5); GFR NON-AFRICAN AMERICAN > 60
[2018-10-26 10:25] LABS: INR 1.07; PARTIAL THROMBOPLASTIN TIME 27.5 Seconds (26.9-38.3); PROTHROMBIN TIME 12.1 SECONDS (9.4-12.5)
[2018-10-26 10:33] LABS: TROPONIN I < 0.01 ng/mL
--- NOTE | 2018-10-26 11:46 | RAD ---
Date of service: 10/26/2018 HISTORY: dizziness COMPARISON: 03/23/2016 FINDINGS: LUNGS: No active pulmonary disease. PLEURA: No significant pleural effusion identified, no pneumothorax apparent. CARDIOVASCULAR: No aortic atherosclerotic calcification present. Normal cardiac size. No pulmonary vascular congestion. OSSEOUS STRUCTURES: No significant abnormalities. VISUALIZED UPPER ABDOMEN: Normal. OTHER FINDINGS: None. IMPRESSION: No active disease.
--- NOTE | 2018-10-26 12:00 | CT ---
Date of service: 10/26/2018 PROCEDURE: CT HEAD WITHOUT CONTRAST. HISTORY: dizziness, headache COMPARISON: 10/24/2017 TECHNIQUE: Axial computed tomography images were obtained through the head/brain without intravenous contrast. Radiation dose: Total exam DLP = 819.71 mGy-cm. This CT exam was performed using one or more of the following dose reduction techniques: Automated exposure control, adjustment of the mA and/or kV according to patient size, and/or use of iterative reconstruction technique. FINDINGS: HEMORRHAGE: No intracranial hemorrhage. BRAIN: No mass effect or edema. No atrophy or chronic microvascular ischemic changes. VENTRICLES: Unremarkable. No hydrocephalus. CALVARIUM: Unremarkable. PARANASAL SINUSES: Unremarkable as visualized. No significant inflammatory changes. MASTOID AIR CELLS: Unremarkable as visualized. No inflammatory changes. OTHER FINDINGS: None. IMPRESSION: Normal CT of the Head.
[2018-10-26 12:18] VITALS: BP 133/69; PULSE 84; RESP 19; TEMP 98.6; O2SAT 99
--- NOTE | 2018-10-26 17:23 | CARD ---
APPROVED REPORT Date of service: 10/26/2018 EKG Measurement Heart [id number] <Conclusion> Normal sinus rhythm Normal ECG
== END 2018-10-26 12:25 | disposition home or self-care (01) ==
LOC: ED 08:43
DX: R42 Dizziness and giddiness (principal); R51 Headache; E11.9 Type 2 diabetes mellitus without complications; E78.5 Hyperlipidemia, unspecified; I10 Essential (primary) hypertension; H40.9 Unspecified glaucoma